=== PATIENT | female | born 1960 | race Hispanic/Latino ===

== ENCOUNTER 2018-12-18 07:19 | Day surgery (SDC) | payer OTHER ==
[~2018-12-18] VITALS: Ht 163.8 cm; Wt 64.4 kg
[2018-12-18] VITALS (23 sets, daily range): BP systolic 84–111; BP diastolic 52–77
[2018-12-18] MEDS ORDERED: SODIUM CHLORIDE 0.9% 1000ML 1,000 ML IV ONE (07:44)
--- NOTE | 2018-12-18 08:00 | NUR ---
NOTE PT STATES SHE PREFERS HER PAPER WORKS TO BE IN [place].
--- NOTE | 2018-12-18 08:30 | NUR ---
ASSESS PT HAS BLISTERS, RASH, HIVES, SCABS ALL OVER BODY. COMPLAINS OF ITCHING. PT VERBALIZED HX OF LUPUS, ARTHRITIS, AND HAS INJURY TO 4TH RIGHT TOE.
--- NOTE | 2018-12-18 09:44 | NUR ---
TO RAD DEPT PT TAKEN TO RADIOLOGY DEPT VIA BED BY MARLENY OLIVAS.
[2018-12-18] MEDS ORDERED: LIDOCAINE HCL 1% 20 ML VIAL ONE (09:47)
[2018-12-18] MEDS ORDERED: FENTANYL CITRATE PF 50 MCG/1 ML 2ML VIAL ONE (10:23)
[2018-12-18] MEDS ORDERED: MIDAZOLAM HCL 1 MG/ML 2ML VIAL ONE (10:24)
--- NOTE | 2018-12-18 10:55 | NUR ---
U/S GD LT RENAL BX RANDOM SITE PROCEDURE PERFORMED BY DR Jose MARTIN. PUNCTURE SITE LT LOWER BACK AND PATIENT TOLERATED PROCEDURE WELL. SPECIMEN X 3 COLLECTED AND SENT TO LAB. END OF PROCEDURE AT 1045. BIOPSY NEEDLE REMOVED AND DRESSING APPLIED. NO BLEEDING NOTED. REPORT GIVEN TO Chase REMY RN AND PATIENT TRANSPORTED TO DAY PATIENT RM 5 VIA STRETCHER AT 1055. AAO X3 WITH NO C/O PAIN.
--- NOTE | 2018-12-18 10:58 | NUR ---
RECEIVE PT RECEIVED FROM RAD DEPT, AWAKE ALERT ORIENTED X3. PT DENIES PAIN TO PUNCTURE SITE, STATES SHE IS COMFORTABLE. SITE TO LEFT LOWER BACK SOFT, DRESSING DRY AND INTACT, NO BLEEDING NO HEMATOMA NOTED. PT POSITIONED SEMI SITTING, INSTRUCTED TO REMAIN IN BED REST X1 HOURS AND SHE WILL BE OBSERVED FOR 2 HRS. PT VERBALIZED UNDERSTANDING. FRIEND AT BEDSIDE, CALL [facility] WITHIN REACH.
--- NOTE | 2018-12-18 11:30 | NUR ---
DIET PT TOLERATED DIET WELL.
--- NOTE | 2018-12-18 12:15 | NUR ---
PAIN PT STATES SHE HAS SOME PAIN TO PUNCTURE SITE TO LEFT LOWER BACK, SCALE OF 4-5. ABDOMEN SOFT. PUNCTURE SITE AND SURROUNDING AREAS SOFT. DRESSING TO PUNCTURE SITE NO BLEEDING NOTED. PT HAS NO OTHER COMPLAINTS. CALLED GUADALUPE MARTINEZ HAND WOODWORKING SANDER. ALSO NOTIFIED GUADALUPE THAT PT'S SBP DOWN TO 80'S, STATED HE WILL CALL AND NOTIFY DR. MARTIN AND WILL CALL ME BACK FOR ORDERS.
[2018-12-18] MEDS ORDERED: ACETAMINOPHEN-CODEINE 300/30MG TAB PO SCH (12:21)
--- NOTE | 2018-12-18 12:36 | NUR ---
ORDERS ORDERS FROM DR. MARTIN TO GIVE NS 500 ML BOLUS AND GIVE TYLENOL#3 TWO TABS PO X1 DOSE. NS 500 ML BOLUS INFUSED, TYLENOL #3 GIVEN PO. WILL CONTINUE TO MONITOR PT.
--- NOTE | 2018-12-18 12:45 | NUR ---
NOTE PER GUAD[facility] SUPERVISOR ADVICE, TO FURTHER OBSERVE PT UNTIL [address] MARTIN. NOTIFY RN/MD IF PT PAIN NOT RELIEVED OR GETTING WORSE, ABDOMINAL, BACK PAIN, SIGNS OF BLEEDING OR ANY OTHER SYMPTOMS.
--- NOTE | 2018-12-18 13:10 | NUR ---
ASSESS PT LYING SEMI SITTING ON BED. STATES HER PAIN OS RELIEVED AND SHE IS COMFORTABLE. ABDOMEN REMAINS SOFT. PUNCTURE SITE LEFT LOWER BACK REMAINS SOFT, NO BLEEDING NO HEMATOMA NOTED.
--- NOTE | 2018-12-18 14:00 | NUR ---
NOTIFY PT NOT IN ANY APPARENT DISTRESS. STABLE. SBP REMAINS IN THE HIGH 90'S. PT STATES SHE IS COMFORTABLE, DENIES PAIN. ABDOMEN REMAINS SOFT, PUNCTURE SITE TO LEFT LOWER BACK SOFT, DRESSING REMAINS DRY AND INTACT, NO OOZING NO HEMATOMA NOTED. CALLED BRIANA BUTCHER. NOTIFIED OF PT'S CONDITION. GUADALUPE WILL NOTIFY DR. MARTIN.
--- NOTE | 2018-12-18 14:10 | NUR ---
DISCHARGE CALL BACK FROM BRIANA BUTCHER. PT MAY BE DISCHARGED HOME PER DR. MARTIN.
--- NOTE | 2018-12-18 14:20 | NUR ---
PT DISCHARGED VIA WHEELCHAIR WITH FRIEND. PT STABLE. NO COMPLAINTS MADE. NOT IN ANY DISTRESS. PUNCTURE SITE REMAINS SOFT, DRESSING NO BLEEDING NO HEMATOMA NOTED. ABDOMEN SOFT. DISCHARGE INSTRUCTIONS GIVEN TO FRIEND AND PT EARLIER, VERBALIZED UNDERSTANDING.
== END 2018-12-18 14:20 | disposition home or self-care (01) ==
LOC: DAH 07:19 → EDSTATUS 09:00 → DAH 14:20
PROVIDERS: ATTEND Internal Medicine
DX: M32.14 Glomerular disease in systemic lupus erythematosus (principal); R80.9 Proteinuria, unspecified; Z98.890 Other specified postprocedural states; E78.5 Hyperlipidemia, unspecified; F41.1 Generalized anxiety disorder
CPT/HCPCS: 50200; 76942; J2250; J3010; J7030; 99152; 99153